=== PATIENT | male | born 1995 | race African-American/Black ===

== ENCOUNTER 2017-07-24 09:36 | Emergency (ER) | payer MEDICAID, OTHER ==
[2017-07-24 09:47] VITALS: BP 141/87
--- NOTE | 2017-07-24 10:13 | EDM.PDOC ---
ED HPI GENERAL MEDICAL PROBLEM - General Chief Complaint: Lower Extremity Injury/Pain Stated Complaint: FOOT INJURY, [id number] Time Seen by Provider: 07/24/17 10:08 Source of Information: Reports: Patient History Limitations: Reports: No Limitations - History of Present Illness INITIAL COMMENTS - FREE TEXT/NARRATIVE: 21 yo White Male c/o left lateral foot pain when landing during gymnastics last night @ 8pm Onset Date: 07/23/17 Onset Time: 20:00 Duration: Day(s): Location: Reports: Lower Extremity, Left Quality: Reports: Ache Severity: Moderate Improves with: Reports: Rest Worsens with: Reports: Movement Associated Symptoms: Reports: No Other Symptoms Left Feet Pain Score (Numeric/FACES): 7 - Related Data Allergies Allergy/AdvReac Type Severity Reaction Status Date / Time No Known Allergies Allergy Verified 07/24/17 09:47 Home Meds: Home Meds . [No Known Home Meds] 07/24/17 [History] Past Medical History HEENT History: Reports: None Cardiovascular History: Reports: None Respiratory History: Reports: None Gastrointestinal History: Reports: None Genitourinary History: Reports: None Musculoskeletal History: Reports: None Neurological History: Reports: None Psychiatric History: Reports: None Endocrine/Metabolic History: Reports: None Hematologic History: Reports: None Immunologic History: Reports: None Oncologic (Cancer) History: Reports: None Dermatologic History: Reports: None - Infectious Disease History Infectious Disease History: Reports: None - Past Surgical History Head Surgeries/Procedures: Reports: None HEENT Surgical History: Reports: Adenoidectomy, Tonsillectomy Social & Family History - Tobacco Use Smoking Status *Q: Never Smoker Second Hand Smoke Exposure: No - Caffeine Use Caffeine Use: Reports: Soda - Recreational Drug Use Recreational Drug Use: No Review of Systems - Review of Systems Review Of Systems: See Below Constitutional: Reports: No Symptoms Eyes: Reports: No Symptoms Ears: Reports: No Symptoms Nose: Reports: No Symptoms Mouth/Throat: Reports: No Symptoms Respiratory: Reports: No Symptoms Cardiovascular: Reports: No Symptoms GI/Abdominal: Reports: No Symptoms Genitourinary: Reports: No Symptoms Musculoskeletal: Reports: Foot Pain (left lateral) Skin: Reports: No Symptoms Neurological: Reports: No Symptoms Psychiatric: Reports: No Symptoms ED EXAM, GENERAL - Physical Exam Exam: See Below Exam Limited By: No Limitations General Appearance: Alert, WD/WN, No Apparent Distress Eye Exam: Bilateral Eye: PERRL Ears: Normal External Exam Nose: Normal Inspection Throat/Mouth: Normal Inspection Head: Atraumatic Neck: Normal Inspection Respiratory/Chest: No Respiratory Distress Cardiovascular: Normal Peripheral Pulses Peripheral Pulses: 2+: Dorsalis Pedis (L), Dorsalis Pedis (R) GI/Abdominal: Normal Bowel Sounds Back Exam: Normal Inspection Extremities: Normal Inspection, Normal Range of Motion, Other (left lateral foot tenderness) Neurological: Alert, Oriented, CN II-XII Intact, Normal Cognition Psychiatric: Normal Affect, Normal Mood Skin Exam: Warm, Dry, Intact, Normal Color Lymphatic: No Adenopathy Course - Vital Signs Last Recorded V/S: Last Vital Signs Temp 36.6 C 07/24/17 09:43 Pulse 87 07/24/17 09:43 Resp 16 07/24/17 09:43 BP 141/87 H 07/24/17 09:43 Pulse Ox 99 07/24/17 09:43 - Orders/Labs/Meds Orders: Active Orders 24 hr Category Date Time Status Ankle 2V Lt [CR] Urgent Exams 07/24/17 10:08 Stop Req Foot 2V Lt [CR] Urgent Exams 07/24/17 10:08 Ordered Departure - Departure Time of Disposition: 10:36 Disposition: Home, Self-Care 01 Condition: Good Clinical Impression: Contusion of foot, left Qualifiers: Encounter type: initial encounter Qualified Code(s): S90.32XA - Contusion of left foot, initial encounter - Discharge Information Forms: ED Department Discharge Additional Instructions: Rest Ice Pack to left lateral foot TID for 15mins. For Pain try OTC: ALLEVE or ADVIL ( take 2-3 tabs every 8 hours with food) F/U w/ PCP - My Orders Last 24 Hours: My Active Orders 07/24/17 10:08 Ankle 2V Lt [CR] Urgent Foot 2V Lt [CR] Urgent - Assessment/Plan Last 24 Hours: My Active Orders 07/24/17 10:08 Ankle 2V Lt [CR] Urgent Foot 2V Lt [CR] Urgent
--- NOTE | 2017-07-24 11:18 | CR ---
Clinical history 21-year-old male left ankle pain. Interpretation: Mild soft tissue swelling medially and suggestion small ankle effusion (sprain?). No fracture (acute or healing) or disruption of the tibiotalar mortise joint symmetry.
--- NOTE | 2017-07-24 11:21 | CR ---
Clinical history: 21-year-old male pain. Interpretation: AP lateral views left foot unremarkable. Homogeneous normal bone density and no sign of foot fracture or dislocation. No foreign bodies. No he el spurs.
== END 2017-07-24 10:59 | disposition home or self-care (01) ==
LOC: DL.ED 09:36
DX: S90.32XA Contusion of left foot, initial encounter (principal); X58.XXXA Exposure to other specified factors, initial encounter; Y93.43 Activity, gymnastics
CPT/HCPCS: 73600-LT; 73620-LT; 99284